=== PATIENT | male | born 1995 | race Caucasian/White ===

== ENCOUNTER 2022-03-08 21:06 | Emergency (ER) | payer SELFPAY ==
[2022-03-08] MEDS ORDERED: Acetaminophen 500 MG TAB ONE (21:38)
== END 2022-03-08 23:10 | disposition home or self-care (01) ==
LOC: BURERS 21:06
DX: J11.1 Influenza due to unidentified influenza virus with other respiratory manifestations (principal); F17.210 Nicotine dependence, cigarettes, uncomplicated
CPT/HCPCS: 87804; 99283